=== PATIENT | female | born 1930 | race Asian ===

== ENCOUNTER 2017-11-04 10:01 | Emergency (ER) | payer MEDICARE, OTHER ==
[~2017-11-04] VITALS: Ht 162.6 cm; Wt 68.2 kg
[2017-11-04 10:11] VITALS: BP 149/78
== END 2017-11-04 12:44 | disposition home or self-care (01) ==
LOC: EMS 10:02
DX: S00.03XA Contusion of scalp, initial encounter (principal); I10 Essential (primary) hypertension; W01.190A Fall on same level from slipping, tripping and stumbling with subsequent striking against furniture, initial encounter; Y93.89 Activity, other specified; Y92.89 Other specified places as the place of occurrence of the external cause; Y99.8 Other external cause status
CPT/HCPCS: 70450; 99284